=== PATIENT | female | born 1970 | race Asian ===

== ENCOUNTER 2018-08-02 12:23 | Day surgery (SDC) | payer OTHER ==
[~2018-08-02 12:23] MED LIST: CEFAZOLIN 1 GM/50 ML (PMX) 50 ML IVPB; SOD CHLORIDE 0.9% 1,000 ML IV
[2018-08-02] MEDS ORDERED: LIDOCAINE 1% (STERILE-PAK) 30 ML INJ (13:58)
[2018-08-02] MEDS ORDERED: MIDAZOLAM 1 MG/ML 2 ML INJ (14:09)
[2018-08-02] MEDS ORDERED: FENTAnyl 50 MCG/ML VIAL (14:09)
[2018-08-02] MEDS: LIDOCAINE 1%/EPI 30 ML INJ (14:24)
[2018-08-02] MEDS: BUPIVACAINE 0.25% (MPF) 30 ML INJ (14:25)
[2018-08-02] MEDS ORDERED: ONDANSETRON 4 MG INJ IV ×2 (15:00)
[2018-08-02] MEDS ORDERED: FENTAnyl 50 MCG/ML VIAL IV ×3 (15:00)
[2018-08-02] MEDS ORDERED: IBUPROFEN 600 MG TAB PO (15:00)
[2018-08-02] MEDS ORDERED: OXYCODONE/ACETAMINOPHEN (5/325) TAB PO ×2 (15:00)
[2018-08-02] MEDS ORDERED: MIDAZOLAM 1 MG/ML 2 ML INJ IV (15:00)
[2018-08-02] MEDS ORDERED: EPHEDrine SULFATE 50 MG/5 ML SYG IV (15:00)
[2018-08-02] MEDS ORDERED: LABETALOL HCL 20MG INJ IV (15:00)
[2018-08-02] MEDS ORDERED: DIPHENHYDRAMINE 50 MG INJ IV (15:00)
[2018-08-02] MEDS ORDERED: hydrALAzine 20 MG INJ IV (15:00)
[2018-08-02] MEDS ORDERED: KETOROLAC 30 MG INJ IV (15:00)
[2018-08-02] MEDS ORDERED: MEPERIDINE 25 MG INJ IV (15:00)
== END 2018-08-02 17:10 | disposition home or self-care (01) ==
LOC: SDS 12:23
DX: L72.0 Epidermal cyst (principal); I10 Essential (primary) hypertension; E11.9 Type 2 diabetes mellitus without complications
CPT/HCPCS: 21930; 82962; 84703; 88307

== ENCOUNTER 2018-08-24 09:59 | Day surgery (SDC) | payer OTHER ==
[2018-08-24] MEDS ORDERED: PROPOFOL 20 ML (10:49)
[2018-08-24] MEDS ORDERED: FENTAnyl 50 MCG/ML VIAL (10:49)
== END 2018-08-24 12:30 | disposition home or self-care (01) ==
LOC: GIL 09:59
DX: Z12.11 Encounter for screening for malignant neoplasm of colon (principal); D12.4 Benign neoplasm of descending colon; E78.5 Hyperlipidemia, unspecified; E11.9 Type 2 diabetes mellitus without complications; I10 Essential (primary) hypertension
CPT/HCPCS: 45380; 82962; 84703; 88305